=== PATIENT | male | born 1995 | race Caucasian/White ===

== ENCOUNTER 2017-08-08 07:24 | Emergency (ER) | payer BC ==
[~2017-08-08] VITALS: Ht 182.9 cm; Wt 83.9 kg
[2017-08-08] MEDS ORDERED: IBUPROFEN 400 MG TABLET ONE (07:47)
[2017-08-08] MEDS ORDERED: IBUPROFEN 400 MG TABLET PO ONE (08:00)
[2017-08-08] MEDS ORDERED: LIDOCAINE 1% INJ 50 ML MDV IJ ONE (10:34)
[2017-08-08] MEDS ORDERED: MORPHINE SULFATE INJ 4 MG/ML DISP.SYRIN ONE ×2 (11:36→13:33)
[2017-08-08] MEDS ORDERED: ETOMIDATE 2 MG/ML VIAL ONE (11:36)
[2017-08-08] MEDS ORDERED: MORPHINE SULFATE INJ 2 MG/ML DISP.SYRIN IV ONE (13:30)
[2017-08-08 14:59] VITALS: BP 124/68
== END 2017-08-08 15:02 | disposition short-term general hospital (02) ==
LOC: EDBD 07:26 → ER 07:26
DX: S62.392A Other fracture of third metacarpal bone, right hand, initial encounter for closed fracture (principal); S32.058A Other fracture of fifth lumbar vertebra, initial encounter for closed fracture; S62.394A Other fracture of fourth metacarpal bone, right hand, initial encounter for closed fracture; S62.396A Other fracture of fifth metacarpal bone, right hand, initial encounter for closed fracture; V49.49XA Driver injured in collision with other motor vehicles in traffic accident, initial encounter; Y93.89 Activity, other specified; Y92.413 State road as the place of occurrence of the external cause; Y99.8 Other external cause status
CPT/HCPCS: 36415; 72100-TC; 73130-TC; 80305; A4606; G0480; J2270; J3490; Z7610

== ENCOUNTER 2018-12-23 11:20 | Emergency (ER) | payer BC, OTHER ==
[~2018-12-23] VITALS: Ht 170.2 cm; Wt 76.7 kg
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
[2018-12-23 11:49] LABS: BASOPHILS % (AUTO) 0.4 % (0.0-2.0); EOSINOPHILS % (AUTO) 0.4 % (0.0-6.0); HEMATOCRIT 44 % (39-51); HEMOGLOBIN 14.7 g/dL (13.5-17.5); LYMPHOCYTES # (AUTO) 1.1 /CMM (0.8-4.8); LYMPHOCYTES % (AUTO) 29.6 % (20.0-44.0); MEAN CORPUSCULAR HGB CONC 34 g/dl (31.0-36.0); MEAN CORPUSCULAR VOLUME 92 fL (80-96); MONOCYTES # (AUTO) 0.2 /CMM (0.1-1.30); MONOCYTES % (AUTO) 6.2 % (2.0-12.0); NEUTROPHILS # (AUTO) 2.4 /CMM (1.8-8.9); NEUTROPHILS % (AUTO) 63.4 % (43.0-81.0); PLATELET COUNT (AUTO) 156 /CMM (150-450); RED BLOOD CELL COUNT(AUTO) 4.79 MIL/uL (4.5-6.0); WHITE BLOOD COUNT (AUTO) 3.7 K/uL (4.3-11.0)
--- NOTE | 2018-12-23 11:50 | NUR ---
PT TAKEN TO RADIOLOGY VIA SUNSHINE
[2018-12-23 11:55] LABS: CALCIUM, SERUM 8.2 mg/dL (8.5-10.1); CREATININE 0.9 mg/dL (0.6-1.3); POTASSIUM 3.7 mmol/L (3.5-5.1)
[2018-12-23] MEDS ORDERED: IBUPROFEN 600 MG TABLET PO ONE (12:42)
[2018-12-23] MEDS: IBUPROFEN 600 MG TABLET PO ONE (12:44)
--- NOTE | 2018-12-23 13:47 | NUR ---
PT RESTING COMFORTABLY IN BED. NO COMPLAINTS AT THIS TIME. AWAITING CT RESULTS.
--- NOTE | 2018-12-23 14:30 | NUR ---
Patient discharged to home in stable condition. Written and verbal after care instructions given. Patient verbalizes understanding of instruction.IV removed. Catheter intact and site benign. Pressure and 4x4 applied to site. No bleeding noted.
[2018-12-23 14:34] VITALS: BP 110/72
== END 2018-12-23 14:35 | disposition home or self-care (01) ==
LOC: ER 11:23
DX: S09.8XXA Other specified injuries of head, initial encounter (principal); F41.9 Anxiety disorder, unspecified; Z98.890 Other specified postprocedural states; V43.62XA Car passenger injured in collision with other type car in traffic accident, initial encounter; Y93.89 Activity, other specified; Y92.413 State road as the place of occurrence of the external cause; Y99.8 Other external cause status
CPT/HCPCS: 36415; 70450-TC; 80048-TC; 85025-TC